=== PATIENT | male | born 1960 | race Caucasian/White ===

== ENCOUNTER → 2017-06-17 | Day surgery (SDC) | payer OTHER ==
[2017-06-14 10:58] LABS: BASOPHILS % 0.6 % (0.0-1.0); EOSINOPHILS # (AUTO) 0.2 (0.0-0.4); HEMATOCRIT 38.4 % (38.2-49.6); HEMOGLOBIN 12.8 g/dL (14.0-18.0); LYMPHOCYTES % 18.8 % (18.0-39.1); MEAN CORPUSCULAR HEMOGLOBIN 28.6 pg (28-32); MEAN CORPUSCULAR HGB CONC 33.3 g/dL (31-35); MEAN CORPUSCULAR VOLUME 85.7 fL (81-99); MONOCYTES # (AUTO) 0.3 (0.2-0.8); MONOCYTES % 5.6 % (4.4-11.3); NEUTROPHILS # (AUTO) 3.6 (2.1-6.9); NEUTROPHILS % 70.4 % (38.7-80.0); PLATELET COUNT 83 x10e3/uL (140-360); RED BLOOD COUNT 4.48 x10e6/uL (4.3-5.7); RED CELL DISTRIBUTION WIDTH 14.8 % (11.7-14.4)
[2017-06-14 11:17] LABS: INR 1.2; PROTHROMBIN TIME 14.3 seconds (11.9-14.5)
[2017-06-14 11:18] LABS: PARTIAL THROMBOPLASTIN TIME 40.5 seconds (23.8-35.5)
[2017-06-14 11:30] LABS: ALBUMIN 3.5 g/dL (3.5-5.0); ALBUMIN/GLOBULIN RATIO 0.8 (0.8-2.0); ANION GAP 13.6 mmol/L (8-16); CALCIUM 9.1 mg/dL (8.4-10.2); CREATININE, SERUM 1.37 mg/dL (0.72-1.25); POTASSIUM 4.6 mmol/L (3.5-5.1)
[~2017-06-17] MED LIST: ALDACTONE25 MG PO; ALDACTONE50 MG PO; ASPIRIN81 MG; BASALGAR; BETAMETHASONE D15 GM; BETAMETHASONE DISODIUM PHOS 6 MG/ML VIAL ONE; BUPIVACAINE HCL 0.5% INJ 30 ML VIAL INJ ONE; CEFAZOLIN SOD 2 GM/D5W 50ML 50 ML IV ONE; CLOBETASOL PROP15 G1; DEMADEX20 MG PO; DEXAMETHASONE SOD PHOS INJ 4 MG/ML VIAL ONE; FENTANYL CITRATE/PF 100MCG/2 ML INJ ONE; FOLIC ACID1 MG PO; HYDROCORTISONE30 GM TOP; LACTULOSE20 GM/30 M PO; LANTUS 3ML100 UNITS/ SQ; LASIX40 MG PO; LIDOCAINE HCL 2% LOCAL INJ 5 ML SDV VIAL INJ ONE; LISINOPRIL20 MG PO; LYRICA25 MG PO; MEN'S MULTI-VI1 EACH; METFORMIN HCL1000 MG PO; MIDAZOLAM HCL 2 MG/2 ML VIAL ONE; NEURONTIN300 MG PO; NEXIUM40 MG PO; NORVASC10 MG PO; NOVOLOG100 UNIT/1 SQ; NOVOLOG100 UNITS/; NOVOLOG100 UNITS/ SC; ONDANSETRON HCL INJ 2 MG/ML VIAL ONE; POTASSIUM CHLO20 ME1 PO; PRADAXA150 MG PO; PRAVASTATIN SOD40 MG PO; PROPOFOL IV EMULSION 10 MG/ML 20 ML VIAL ONE; PROPRANOLOL HCL40 MG PO; REVATIO20 MG PO; SEVOFLURANE INHAL SOLN 250 ML PEN BTL ONE; TRIAMCINOLONE A15 G1; TYLENOL; VITAMIN B-121000 MCG PO; VITAMIN D PO; XARELTO10 MG PO; XIFAXAN550 MG
--- NOTE | 2017-06-17 11:33 | Operative Report ---
DATE OF PROCEDURE: June 17, 2017 PREOPERATIVE DIAGNOSIS: Plantarflexed metatarsal head, right foot 5th metatarsal, with concomitant history of diabetic ulceration off and on. POSTOPERATIVE DIAGNOSIS: Plantarflexed metatarsal head, right foot 5th metatarsal, with concomitant history of diabetic ulceration off and on. PROCEDURES 1. Fifth metatarsal head resection, right foot. 2. Extensor digitorum brevis lengthening, right foot. 3. Trigger-point cortisone injection. 4. Intraoperative fluoroscopy. 5. Application of posterior splint, right lower extremity. ANESTHESIA: General LMA. CORROSION CONTROL TECHNICIAN: None. HEMOSTASIS: Pneumatic tourniquet on the right thigh inflated to 350 mmHg. ESTIMATED BLOOD LOSS: Less than 5 mL. INJECTABLES: Ten mL of a 9:1 mixture of 0.5% Marcaine plain and dexamethasone. INDICATIONS FOR PROCEDURE: Mr. Ariza is a pleasant, male, 56 years of age, having history of nonhealing diabetic ulceration off and on. It heals and then flares up again. At this point, we decided to perform a 5th metatarsal osteotomy. Given the underlying circumstances, ultimately last minute, we proceeded with 5th metatarsal head resection and extensor tendon lengthening due to intraoperative findings. He was educated on the risks and complications of the same and the possibility of doing the latter as opposed to the planned procedure. He was willing and able to proceed with the same. DESCRIPTION OF PROCEDURE: Under mild sedation, he was brought to the operating room and placed on the operating room table in the supine position. Following induction and administration of general LMA anesthesia by the anesthesia services, a well-padded pneumatic tourniquet was placed on the patient's right thigh. Next, the distal right lower extremity was scrubbed, prepped and draped in the usual aseptic manner. The extremity was then elevated, exsanguinated, and the tourniquet inflated. Attention was then directed to the right foot dorsum of the same overlying the 5th metatarsophalangeal joint area and proximal to the same where an incision was created linearly along the aforementioned area. The incision was then deepened utilizing a combination of sharp and blunt dissection as well as some electrocautery. Once at the level of the 5th metatarsophalangeal joint, which was noted to be covered by the base of the proximal phalanx, there was significant digital contracture. The same was transected. Then utilizing a McGlamry elevator, the metatarsal head was freed of the soft-tissue attachments. Next, a Foelia osteotomy-like cut was created utilizing a sagittal saw. The 5th metatarsal head was removed in toto from the operative site. Some resistance was found, removing the same secondary to the amount of contracture in the area. Procedure #2: Extensor tendon lengthening. At this point, to decrease the significant contracture of the 5th digit, a Z-like lengthening was created to the extensor tendon, transecting the same longitudinally, then medially and laterally effectively producing a Z lengthening. The area was then copiously irrigated. The tendon was reapproximated end-to-end at this point as opposed to [id number]. Subsequently, the entire area was closed in layers. Procedure #3: Trigger-point cortisone injection was infiltrated to decrease postoperative inflammatory response. Procedure #4: Intraoperative fluoroscopy was utilized throughout the procedure to assess for anatomic reduction of the 5th metatarsal head. Procedure #5: A posterior splint was applied after dressings to protect the surgical site. The patient was then subsequently extubated, tourniquet deflated, and transferred to the PACU with vital signs stable. Job#: [id number]
== END | disposition home or self-care (01) ==
LOC: OR 07:47
PROVIDERS: ATTEND Podiatrist Foot Surgery
CPT/HCPCS: 36415; 76000; 80053; 82948; 85025; 85610; 85730; J0720; J1100; J2001; J2250; J2405

== ENCOUNTER 2017-11-29 20:00 | Emergency (ER) | payer OTHER ==
[~2017-11-29] VITALS: Ht 193 cm; Wt 122.0 kg
[~2017-11-29 20:00] MED LIST changes: -BETAMETHASONE DISODIUM PHOS 6 MG/ML VIAL ONE; -BUPIVACAINE HCL 0.5% INJ 30 ML VIAL INJ ONE; -CEFAZOLIN SOD 2 GM/D5W 50ML 50 ML IV ONE; -DEXAMETHASONE SOD PHOS INJ 4 MG/ML VIAL ONE; -FENTANYL CITRATE/PF 100MCG/2 ML INJ ONE; -LIDOCAINE HCL 2% LOCAL INJ 5 ML SDV VIAL INJ ONE; -MIDAZOLAM HCL 2 MG/2 ML VIAL ONE; -ONDANSETRON HCL INJ 2 MG/ML VIAL ONE; -PROPOFOL IV EMULSION 10 MG/ML 20 ML VIAL ONE; -SEVOFLURANE INHAL SOLN 250 ML PEN BTL ONE
--- OUTSIDE RECORDS SUMMARY | 2017-11-29 20:03 | XMS REPORT ---
Author Reno Charlton Organization [employer] Address Unknown Phone Unavailable Care Team Providers Care Repair Manager Name Role Phone Reno Robertson CP Unavailable Allergies No Known Allergies Problems Problem Type Condition Code Onset Dates Condition Status Problem Positive SAI (antinuclear antibody) R76.8 Active Problem Psoriasis L40.9 Active Medications Medication Code System Code Instructions Start Date End Date Status Dosage [place] 52808429082 80 MG/ML Subcutaneous every 2 weeks August 09, 2017 Active 1 ml Results No Known Results Summary Purpose [employer] Submission
--- OUTSIDE RECORDS SUMMARY | 2017-11-29 20:03 | XMS REPORT ---
Author Reno Charlton [facility] [employer] Address Unknown Phone Unavailable Care Team Providers Care Bottom Finisher Name Role Phone Reno Robertson CP Unavailable Allergies, Adverse Reactions, Alerts Substance Reaction Event Type N.K.D.A. Info Not Available Non Drug Allergy Problems Problem Type Condition Code Onset Dates Condition Status Problem Positive SAI (antinuclear antibody) R76.8 Active Assessment Psoriasis L40.9 Active Problem Psoriasis L40.9 Active Assessment Positive SAI (antinuclear antibody) R76.8 Active Medications Medication Code System Code Instructions Start Date End Date Status Dosage Lactulose ND 40880120698 20 GM/30ML Orally Once a day Active 15 ml Prilosec OTC ND 09738454524 20 MG Orally Once a day Active 1 tablet Clobetasol Propionate ND 48148658892 0.05 % Externally prn Active 1 application to affected area NovoLog ND 06074491807 100 UNIT/ML Subcutaneous prn Active as directed Basaglar KwikPen ND 92599789330 100 UNIT/ML Subcutaneous Active as directed Mens Multivitamin Plus NDC 0 - Orally Active as directed Betamethasone Valerate ND 26448969178 0.1 % Externally prn Active 1 [place] [address]-47 500 mg Orally Active as directed Triamcinolone Acetonide ND 59431078834 0.1 % Externally prn Active 1 application to affected area Aspir-81 ND 12844631803 81 MG Orally Once a day Active 1 tablet Gabapentin ND 70436508206 800 MG Orally Twice a day Active 1 tablet Hydrocortisone ND 12298316210 2.5 % Rectal prn Active 1 application to affected area Spironolactone ND 91024547299 100 MG Orally Once a day Active 1 tablet with food Torsemide ND 66054704049 20 MG Orally Active as directed Xifaxan [facility] 27336020505 550 MG Orally Twice a day Active 1 tablet Vital Signs Date/Time: July 01, 2017 BMI 33.39 Index Weight 274.3 lbs Height 76 in Temperature 97.7 F Cardiac Monitoring Heart Rate 72 /min Blood Pressure Diastolic 66 mm Hg Blood Pressure Systolic 138 mm Hg Results Name Result Date Reference Range Unit Abnormality Flag HISTOPLASMA ANTIBODY, ID ----HISTOPLASMA ANTIBODY, ID NEGATIVE [id number] HEPATITIS PANEL ----HEPATITIS C ANTIBODY NON-REACTIVE [id number] NON-REACTIVE N ----HEPATITIS B CORE AB TOTAL NON-REACTIVE [id number] NON-REACTIVE N ----SIGNAL TO CUT-OFF 0.09 [id number] <1.00 N ----HEPATITIS A AB, TOTAL REACTIVE [id number] NON-REACTIVE A ----HEPATITIS B SURFACE ANTIGEN NON-REACTIVE [id number] NON-REACTIVE N ----HEPATITIS B SURFACE ANTIBODY QL NON-REACTIVE [id number] NON-REACTIVE N QUANTIFERON(R)-TB GOLD ----QUANTIFERON(R)-TB GOLD NEGATIVE [id number] NEGATIVE N ----NIL 0.03 [id number] IU/mL N ----MITOGEN-NIL >10.00 [id number] IU/mL N ----TB-NIL <0.00 [id number] IU/mL N COCCIDIOIDES ANTIBODY, ID ----COCCIDIOIDES ANTIBODY, ID NEGATIVE [id number] Summary Purpose eClinicalWorks Submission
--- OUTSIDE RECORDS SUMMARY | 2017-11-29 20:03 | XMS REPORT | Continuity of Care Document ---
Author Author [facility] Address Unknown Phone Unavailable Problems Problem Status Onset Date Classification Date Reported Comments Source Positive SAI Active Problem 09/14/2017 Cachorro Robertson Psoriasis Active Problem 09/14/2017 Cachorro Robertson Psoriatic arthritis Active Problem 09/14/2017 Cachorro Robertson Medications Medication Details Route Status Patient Instructions Ordering Provider Order Date Source [place] 1 ml Subcutaneous Active 80 MG/ML Subcutaneous every 2 weeks [place] 08/09/2017 Cachorro Robertson Clobetasol Propionate 1 application to affected area Externally Active 0.05 % Externally prn [place] Cachorro Robertson Spironolactone 1 tablet with food Orally Active 100 MG Orally Once a day [place] Cachorro Robertson Triamcinolone Acetonide 1 application to affected area Externally Active 0.1 % Externally prn [place] Cachorro Robertson Mens Multivitamin Plus as directed Orally Active - Orally [place] Cachorro Robertson Basaglar KwikPen as directed Subcutaneous Active 100 UNIT/ML Subcutaneous [place] Cachorro Robertson Torsemide as directed Orally Active 20 MG Orally [place] Cachorro Robertson Xifaxan 1 tablet Orally Active 550 MG Orally Twice a day [place] Cachorro Robertson NovoLog as directed Subcutaneous Active 100 UNIT/ML Subcutaneous prn [place] Cachorro Robertson Betamethasone Valerate 1 application to affected area Externally Active 0.1 % Externally prn [place] Cachorro Robertson Gabapentin 1 tablet Orally Active 800 MG Orally Twice a day [place] Cachorro Robertson Lactulose 15 ml Orally Active 20 GM/30ML Orally Once a day [place] Cachorro Robertson Tylenol as directed Orally Active 500 mg [facility] Hydrocortisone 1 application to affected area Rectal Active 2.5 % Rectal prn [place] Cachorro Robertson Aspir-81 1 tablet Orally Active 81 MG Orally Once a day [place] Cachorro Robertson Prilosec OTC 1 tablet Orally Active 20 MG Orally Once a day Robertson Cachorro Robertson Allergies, Adverse Reactions, Alerts Substance Category Reaction Severity Reaction type Status Date Reported Comments Source N.K.D.A. Adverse Reaction Info Not Available Adverse Reaction Active 09/10/2017 Cachorro Robertson Immunizations Immunization Date Given Site Status Last Updated Comments Source Results Order Name Results Value Reference Range Date Interpretation Comments Source Vital Signs Vital Sign Value Date Comments Source Weight 283.9 09/10/2017 Cachorro Bryaner Height 76 09/10/2017 Cachorro Robertson Temperature Oral (F) 97.2 F 09/10/2017 Cachorro Robertson Heart Rate 74 09/10/2017 Cachorro Robertson Diastolic (mm Hg) 64 09/10/2017 Cachorro Robertson Systolic (mm Hg) 130 09/10/2017 Cachorro Bryaner Weight 274.3 07/01/2017 Cachorro Robertson Height 76 07/01/2017 Cachorro Robertson Temperature Oral (F) 97.7 F 07/01/2017 Cachorro Robertson Heart Rate 72 07/01/2017 Cachorro Robertson Diastolic (mm Hg) 66 07/01/2017 Cachorro Robertson Systolic (mm Hg) 138 07/01/2017 Cachorro Robertson Encounters Location Location Details Encounter Type Encounter Number Reason For Visit Attending Provider ADM Date DC Date Status Source Procedures Procedure Code Date Perfomer Comments Source
--- OUTSIDE RECORDS SUMMARY | 2017-11-29 20:03 | XMS REPORT ---
Author Reno Charlton [facility] [employer] Address Unknown Phone Unavailable Care Team Providers Care Wireless Cellular Technician Name Role Phone Reno Robertson CP Unavailable Allergies, Adverse Reactions, Alerts Substance Reaction Event Type N.K.D.A. Info Not Available Non Drug Allergy Problems Problem Type Condition Code Onset Dates Condition Status Problem Positive SAI (antinuclear antibody) R76.8 Active Problem Psoriasis L40.9 Active Problem Psoriatic arthritis L40.50 Active Assessment Positive SAI (antinuclear antibody) R76.8 Active Assessment Psoriasis L40.9 Active Assessment Psoriatic arthritis L40.50 Active Medications Medication Code System Code Instructions Start Date End Date Status Dosage Clobetasol Propionate ND 41824661600 0.05 % Externally prn Active 1 application to affected area Taltz ND 84099150926 80 MG/ML Subcutaneous every 2 weeks August 09, 2017 Active 1 ml Spironolactone ND 86853562644 100 MG Orally Once a day Active 1 tablet with food Triamcinolone Acetonide ND 97141636263 0.1 % Externally prn Active 1 application to affected area Mens Multivitamin Plus NDC 0 - Orally Active as directed Basaglar KwikPen ND 51278886671 100 UNIT/ML Subcutaneous Active as directed Torsemide ND 91736475572 20 MG Orally Active as directed Xifaxan ND 66889896075 550 MG Orally Twice a day Active 1 tablet NovoLog ND 53167533052 100 UNIT/ML Subcutaneous prn Active as directed Betamethasone Valerate ND 87895748203 0.1 % Externally prn Active 1 application to affected area Gabapentin ND 96731718785 800 MG Orally Twice a day Active 1 tablet Lactulose ND 56527581705 20 GM/30ML Orally Once a day [place] 15 [place] [address]-06 500 mg Orally Active as directed Hydrocortisone ND 94086515703 2.5 % Rectal prn Active 1 application to affected area Aspir-81 ND 01613289424 81 MG Orally Once a day Active 1 tablet Vital Signs Date/Time: September 10, 2017 BMI 34.55 Index Weight 283.9 lbs Height 76 in Temperature 97.2 F Cardiac Monitoring Heart Rate 74 /min Blood Pressure Diastolic 64 mm Hg Blood Pressure Systolic 130 mm Hg Results No Known Results Summary Purpose eClinicalWorks Submission
--- OUTSIDE RECORDS SUMMARY | 2017-11-29 20:03 | XMS REPORT ---
Author Reno Charlton Organization [employer] Address Unknown Phone Unavailable Care Team Providers Care Eyeglass Frame Truer Name Role Phone Reno Robertson CP Unavailable Allergies No Known Allergies Problems Problem Type Condition Code Onset Dates Condition Status Problem Positive SAI (antinuclear antibody) R76.8 Active Problem Psoriasis L40.9 Active Medications No Known Medications Results No Known Results Summary Purpose eClinicalWorks Submission
[2017-11-29] MEDS ORDERED: CLINDAMYCIN PHOS 900MG/ 50ML 50 ML IV STA (20:25)
[2017-11-29 21:11] VITALS: BP 139/86
== END 2017-11-29 21:12 | disposition home or self-care (01) ==
LOC: FSED 20:00
DX: M79.671 Pain in right foot (principal); L03.115 Cellulitis of right lower limb; I10 Essential (primary) hypertension; E11.9 Type 2 diabetes mellitus without complications
CPT/HCPCS: 99283